=== PATIENT | female | born 1985 | race Caucasian/White ===

== ENCOUNTER 2016-10-16 10:37 | Inpatient (IN) | payer BC ==
[2016-10-16] MEDS ORDERED: Nalbuphine 20 MG/1 ML Amp IVPUSH PRN (11:33)
[2016-10-16] MEDS ORDERED: Sodium Chloride 0.9% 10 ML Syringe FLUSH PRN (11:33)
[2016-10-16] MEDS ORDERED: Oxytocin/Lactated Ringers 10 UNIT/1,000 ML BAG IV SCH (11:45)
[2016-10-16] MEDS: Misoprostol 25 MCG (1/4 of 100 MCG) Tab VAG SCH ×3 (12:29→19:24)
--- NOTE | 2016-10-16 14:16 | PCM.PREANE ---
Preanesthetic Assessment - Anesthesia/Transfusion/Family Hx Anesthesia History: No Prior Anesthesia Family History of Anesthesia Reaction: No Transfusion History: No Prior Transfusion(s) Intubation History: Unknown - Review of Systems General: No Symptoms Pulmonary: No Symptoms Cardiovascular: No Symptoms Gastrointestinal: Other (Gerd- on Zantac still with heartburn symptoms ) Neurological: Other (left leg numbness last few days most likely due to ) Other: Reports: None - Physical Assessment NPO Status Date: 10/16/16 NPO Status Time: 14:00 O2 Sat by Pulse Oximetry: 96 Respiratory Rate: 18 Vital Signs: Last Vital Signs Temp 36.7 C 10/16/16 12:00 Pulse 79 10/16/16 12:00 Resp 18 10/16/16 12:00 BP 129/78 10/16/16 12:00 Pulse Ox 96 10/16/16 12:00 Height: 1.68 m Weight: 108.21 kg ASA Class: 2 Mental Status: Alert & Oriented x3 Dentition: Reports: Normal Dentition Thyro-Mental Finger Breadths: 3 Mouth Opening Finger Breadths: 5 ROM/Head Extension: Full Lungs: Clear to auscultation, Normal respiratory effort Cardiovascular: Regular Rate, Regular Rhythm - Lab Values: Laboratory Last Values WBC 10.00 K/mm3 (3.98-10.04) 10/16/16 11:50 RBC 4.04 M/mm3 (3.98-5.22) 10/16/16 11:50 Hgb 12.9 gm/L (11.2-15.7) 10/16/16 11:50 Hct 37.7 % (34.1-44.9) 10/16/16 11:50 MCV 93.3 fl (79.4-94.8) 10/16/16 11:50 MCH 31.9 pg (25.6-32.2) 10/16/16 11:50 MCHC 34.2 g/dl (32.2-35.5) 10/16/16 11:50 RDW Std Deviation 44.6 fL (36.4-46.3) 10/16/16 11:50 Plt Count 209 K/mm3 (182-369) 10/16/16 11:50 MPV 11.2 fl (9.4-12.3) 10/16/16 11:50 Neut % (Auto) 70.0 % (34.0-71.1) 10/16/16 11:50 Lymph % (Auto) 18.9 % (19.3-51.7) L 10/16/16 11:50 [place] % (Auto) 9.1 % (4.7-12.5) 10/16/16 11:50 Eos % (Auto) 1.0 (0.7-5.8) 10/16/16 11:50 Baso % (Auto) 0.2 % (0.1-1.2) 10/16/16 11:50 Neut # (Auto) 7.00 K/mm3 (1.56-6.13) H 10/16/16 11:50 Lymph # (Auto) 1.89 K/mm3 (1.18-3.74) 10/16/16 11:50 [place] # (Auto) 0.91 K/mm3 (0.24-0.36) H 10/16/16 11:50 Eos # (Auto) 0.10 K/mm3 (0.04-0.36) 10/16/16 11:50 Baso # (Auto) 0.02 K/mm3 (0.01-0.08) 10/16/16 11:50 - Allergies Allergies/Adverse Reactions: Allergies Allergy/AdvReac Type Severity Reaction Status Date / Time No Known Allergies Allergy Verified 10/16/16 11:32 - Blood Blood Available: Yes Product(s) Available: PRBC - Anesthesia Plan Pre-Op Medication Ordered: None - Acknowledgements Anesthesia Type Planned: Epidural Pt an Appropriate Candidate for the Planned Anesthesia: Yes Alternatives and Risks of Anesthesia Discussed w Pt/Guardian: Yes Pt/Guardian Understands and Agrees with Anesthesia Plan: Yes PreAnesthesia Questionnaire HEENT History: Reports: None Cardiovascular History: Reports: None Respiratory History: Reports: None Gastrointestinal History: Reports: GERD Genitourinary History: Reports: None 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: : 2 (40 6/7 weeks) Para: 0 Musculoskeletal History: Reports: None Neurological History: Reports: None Psychiatric History: Reports: None Endocrine/Metabolic History: Reports: None Hematologic History: Reports: None Immunologic History: Reports: None Oncologic (Cancer) History: Reports: None Dermatologic History: Reports: None - Infectious Disease History Infectious Disease History: Reports: None - Past Surgical History Head Surgeries/Procedures: Reports: None - SUBSTANCE USE Smoking Status *Q: Never Smoker Second Hand Smoke Exposure: No Recreational Drug Use History: No - CURRENT (IN HOUSE) MEDS Current Meds: Current Medications Lactated Ringer's (Ringers, Lactated) 1,000 mls @ 100 mls/hr IV ASDIRECTED CHRISTINE Oxytocin/Lactated Ringer's (Pitocin In Lr 10 Units/1,000 Ml) 10 unit in 1,000 mls @ 12 mls/hr IV TITRATE CHRISTINE; 2 MUNITS/MIN PRN Reason: Protocol Misoprostol (Cytotec) 25 mcg VAG Q4HR CHRISTINE Stop: 10/16/16 17:01 Last Admin: 10/16/16 12:29 Dose: 25 mcg Nalbuphine HCl (Nubain) 10 mg IVPUSH Q2H PRN PRN Reason: Pain (moderate 4-6) Sodium Chloride (Saline Flush) 10 ml FLUSH ASDIRECTED PRN PRN Reason: Keep Vein Open
[2016-10-16] MEDS ORDERED: diphenhydrAMINE 50 MG/ML SDV IVPUSH PRN (14:36)
[2016-10-16] MEDS ORDERED: ePHEDrine 50 MG/ML SDV IVPUSH PRN (14:36)
[2016-10-16] MEDS ORDERED: fentaNYL 100 MCG/2 ML SDV EPIDUR PRN (14:36)
[2016-10-16] MEDS ORDERED: Bupivacaine/fentaNYL/NS 100 ML Bag EPIDUR SCH (14:45)
--- NOTE | 2016-10-16 17:02 | PCM.LDHP ---
L&D History of Present Illness - General Date of Service: 10/16/16 Admit Problem/Dx: Patient Status Order with Admit Dx/Problem 10/16/16 15:10 Patient Status [ADT] Routine Admission Diagnosis/Problem Admission Diagnosis/Problem Normal labor 10/16/16 16:50 40-6/7 week intrauterine , induction of labor Source of Information: Patient History Limitations: Reports: No limitations - History of Present Illness Introduction:: History of present illness: Amanda is a 31-year-old 2 para 0010 white female was admitted for elective induction of labor. She was due on 10/10/2016 placing her now at 40-6/7 weeks gestational age. She was seen in clinic today with some low back pain, generalized discomforts of and request for induction of labor. She is admitted to labor and delivery for Cytotec cervical ripening and Pitocin induction. She has had one dose of Cytotec already and is currently 1-2 cm dilated, 90% effaced 0 station, posterior position, soft. Baby is in a vertex presentation. She's having contractions approximately 3 minutes that are mild enough where she is not palpating them. heart tones reassuring. A biophysical profile this morning was 6/8 per ultrasound alone. She 's had a reactive nonstress test making it now 8/10. The procedure of induction of labor, its risks, benefits and alternatives are discussed in detail with the patient. She appears to understand and would like to proceed. 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 Her last menstrual period started 12/27/2015, was definite, had occurred on a monthly basis. She is not using any control 10 conception. Menarche age 9. Ultrasound was performed on 02/27/2016, 03/26/2016, 05/23/2016 and 06/26/2016 with all ultrasounds supportive of her last menstrual period dating which gave an JANELLE of 10/10/2016. Her course was positive for some anxiety. A cystic structure in the right ovary which was felt to be benign. Her [place] depression screen score on 05/14/2016 with 2 on a scale of 30. She is group B strep negative. She did have problems with hemorrhage x1 which resolved spontaneously. Her flu vaccine was administered on 03/26/2016. RhoGAM was given on 07/25/2016. She did have some nausea early in . First visit was on 03/26/2016 11-5/7 weeks gestational age. Patient seen on a regular basis. She made good fundal height growth. Her weight increased from a pre- weight of 2 weight 238 pounds for 36 pound weight gain. Her vital signs are stable throughout the course. laboratory testing is as follows: Blood is O- with a negative antibody screen. She received RhoGAM at the end of second trimester, specifically on 07/25/2016. Her initial platelet count was 267 and her initial hemoglobin was 13.4. Her rubella titer is immune. RPR is nonreactive. Hepatitis B surface antigen and HIV assays were both negative. Her gonorrhea and Chlamydia were both negative. TSH was normal at 0.898 milliunits per milliliter. Second trimester testing showed a hemoglobin of 12.7, platelet count 201,000. Her diabetic screening test was normal at 77. Antibody screen was negative prior to the RhoGAM. Her group B strep screen is negative. Allergies: Seasonal allergies only. No known drug allergies. Medications: 1. Hydrocortisone 2.56% rectal cream 3 times a day when necessary 2. Zantac 75 mg by mouth when necessary 3. Flintstones gum is omega and-3 DHA tissues 4 vitamin B12 choose Past medical history: 1. Spontaneous miscarriage x1. 2. Frequent urinary tract infections Past surgical history: Noncontributory Family history: Maternal third cousin with Down's syndrome. Mother and father are alive and in good health. No related problems noted. No bleeding, blood clotting anesthesia abnormalities reported. Social history: Patient is single. Patient works at [employer]. She denies any significant loss of alcohol, drugs or tobacco. He lives in [place]. Review of systems: Skin-negative Endocrine-negative Respiratory-negative Cardiovascular-negative Breasts-changes associated with GI-negative - changes Musculoskeletal-negative other than mild edema Neurologic-negative Physical exam: In general the patient is a well-developed, well-nourished, pleasant white female who was in moderate distress a.m. upon evaluation in clinic for care. She is having some back pain at that time. This has improved now that she's been admitted to labor and delivery. Skin is warm and dry without lesions. HEENT, neck and back within normal limits. Lungs are clear with good breath sounds in all mendiola. Cardiovascular exam shows regular rate and rhythm without murmurs. Breasts exam deferred having been done first visit-patient plans to pump and feet breasts normal Abdomen is protuberant with fundal height of approximately 38 cm. Baby in vertex presentation. Cervix is 1-2 cm/90%/0 station/soft/posterior Extremities show minimal edema. Neurological exam grossly within normal limits. - Related Data Allergies/Adverse Reactions: Allergies Allergy/AdvReac Type Severity Reaction Status Date / Time No Known Allergies Allergy Verified 10/16/16 11:32 Home Medications: Home Meds Pediatric Multivit Comb. 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: Musculoskeletal History: Reports: None Neurological History: Reports: None Psychiatric History: Reports: None Endocrine/Metabolic History: Reports: None Hematologic History: Reports: None Immunologic History: Reports: None Oncologic (Cancer) History: Reports: None Dermatologic History: Reports: None - Infectious Disease History Infectious Disease History: Reports: None - Past Surgical History Head Surgeries/Procedures: Reports: None Social & Family History - Family History Family Medical History: Noncontributory - Tobacco Use Smoking Status *Q: Never Smoker Second Hand Smoke Exposure: No - Recreational Drug Use Recreational Drug Use: No H&P Review of Systems - Review of Systems: Review Of Systems: See Below L&D Exam - Exam Exam: See Below - Vital Signs Vital Signs: Last Vital Signs Temp 36.7 C 10/16/16 12:00 Pulse 79 10/16/16 12:00 Resp 18 10/16/16 14:19 BP 129/78 10/16/16 12:00 Pulse Ox 96 10/16/16 14:19 Weight: 108.21 kg - Patient Data Lab Results last 24 hrs: Laboratory Results - last 24 hr 10/16/16 Range/Units 11:50 WBC 10.00 (3.98-10.04) K/mm3 RBC 4.04 (3.98-5.22) M/mm3 Hgb 12.9 (11.2-15.7) gm/L Hct 37.7 (34.1-44.9) % MCV 93.3 (79.4-94.8) fl MCH 31.9 (25.6-32.2) pg MCHC 34.2 (32.2-35.5) g/dl RDW Std Deviation 44.6 (36.4-46.3) fL Plt Count 209 (182-369) K/mm3 MPV 11.2 (9.4-12.3) fl Neut % (Auto) 70.0 (34.0-71.1) % Lymph % (Auto) 18.9 L (19.3-51.7) % [place] % (Auto) 9.1 (4.7-12.5) % Eos % (Auto) 1.0 (0.7-5.8) Baso % (Auto) 0.2 (0.1-1.2) % Neut # (Auto) 7.00 H (1.56-6.13) K/mm3 Lymph # (Auto) 1.89 (1.18-3.74) K/mm3 [place] # (Auto) 0.91 H (0.24-0.36) K/mm3 Eos # (Auto) 0.10 (0.04-0.36) K/mm3 Baso # (Auto) 0.02 (0.01-0.08) K/mm3 Result Diagrams: 10/16/16 11:50 Problem List Initiated/Reviewed/Updated: Yes Orders Last 24hrs: Active Orders 24 hr Category Date Time Status Patient Status [ADT] Routine ADT 10/16/16 15:10 Active Activity as Tolerated [RC] PFP Care 10/16/16 11:33 Active Communication Order [RC] ASDIRECTED Care 10/16/16 11:33 Active Communication Order [RC] ASDIRECTED Care 10/16/16 14:32 Active Heart Tones [RC] ASDIRECTED Care 10/16/16 11:34 Active Notify Provider [RC] ASDIRECTED Care 10/16/16 14:33 Active Notify Provider [RC] PFP Care 10/16/16 11:33 Active Notify Provider [RC] PRN Care 10/16/16 11:33 Active Peripheral IV Care [RC] . DIRECTED Care 10/16/16 11:34 Active Pulse Oximetry [RC] ASDIRECTED Care 10/16/16 14:31 Active Pump Management, Intrathecal [RC] ASDIRECTED Care 10/16/16 11:35 Active Urinary Catheter Assessment [RC] ASDIRECTED Care 10/16/16 11:33 Active Vital Signs [RC] PER UNIT ROUTINE Care 10/16/16 11:33 Active Bupivacaine/fentaNYL/NS [fentaNYL/Bupivacaine/NS 2 MCG- Med 10/16/16 14:45 Active 0.125% 100 ML] 100 ml EPIDUR ASDIRECTED Lactated Ringers [Ringers, Lactated] 1,000 ml Med 10/16/16 11:45 Active IV ASDIRECTED Misoprostol [Cytotec] Med 10/16/16 12:00 Active 25 mcg VAG Q4HR Nalbuphine [Nubain] Med 10/16/16 11:33 Active 10 mg IVPUSH Q2H PRN Oxytocin/Lactated Ringers [Pitocin in LR 10 Units/1,000 Med 10/16/16 11:45 Active ML] 10 unit in 1,000 ml IV TITRATE Sodium Chloride 0.9% [Saline Flush] Med 10/16/16 11:33 Active 10 ml FLUSH ASDIRECTED PRN diphenhydrAMINE [Benadryl] Med 10/16/16 14:36 Active 25 mg IVPUSH Q6H PRN ePHEDrine [ePHEDrine Sulfate] Med 10/16/16 14:36 Active 5 mg IVPUSH ASDIRECTED PRN fentaNYL [Sublimaze] Med 10/16/16 14:36 Active 100 mcg EPIDUR Q3H PRN Electronic Heart Tones Ext w TOCO [WOMSER] Oth 10/16/16 11:33 Ordered Routine Electronic Heart Tones Internal [WOMSER] Per Unit Oth 10/16/16 11:33 Ordered Routine Peripheral IV Insertion Adult [OM.PC] Routine Oth 10/16/16 11:33 Ordered Pulse Oximetry Continuous Monitoring [OM.PC] Routine Oth 10/16/16 14:33 Active Resuscitation Status Routine Resus Stat 10/16/16 11:33 Ordered Medication Orders Diphenhydramine HCl (Benadryl) 25 mg IVPUSH Q6H PRN PRN Reason: pruritis Ephedrine Sulfate (Ephedrine Sulfate) 5 mg IVPUSH ASDIRECTED PRN PRN Reason: Hypotension Fentanyl (Sublimaze) 100 mcg EPIDUR Q3H PRN PRN Reason: Pain Fentanyl/Bupivacaine HCl (Fentanyl/Bupivacaine/Ns 2 Mcg-0.125% 100 Ml) 100 ml EPIDUR ASDIRECTED CHRISTINE Lactated Ringer's (Ringers, Lactated) 1,000 mls @ 100 mls/hr IV ASDIRECTED CHRISTINE Oxytocin/Lactated Ringer's (Pitocin In Lr 10 Units/1,000 Ml) 10 unit in 1,000 mls @ 12 mls/hr IV TITRATE CHRISTIEN; 2 MUNITS/MIN PRN Reason: Protocol Misoprostol (Cytotec) 25 mcg VAG Q4HR CHRISTINE Stop: 10/16/16 17:01 Last Admin: 10/16/16 15:09 Dose: Not Given Admin: 10/16/16 12:29 Dose: 25 mcg Nalbuphine HCl (Nubain) 10 mg IVPUSH Q2H PRN PRN Reason: Pain (moderate 4-6) Sodium Chloride (Saline Flush) 10 ml FLUSH ASDIRECTED PRN PRN Reason: Keep Vein Open Assessment/Plan Comment:: Assessment: 1. 40-6/7 week intrauterine , admitted for induction of labor 2. Group B strep status negative. 3. Patient is desiring epidural in labor and delivery 4. Patient plans to breast-feed/polyp and the breast milk 5. Low back pain today suspect possibility of early labor. Plan: 1. Patient's undergone one dose of Cytotec with good results. Anticipate normal spontaneous vaginal delivery. 2. Pitocin induction to be started at this time 3. Intermittent electronic monitoring per protocol 4. Epidural when necessary per patient desire 5. Encouraged breast-feeding behavior.
[2016-10-16] MEDS: Lactated Ringers 1,000 ML IV SCH ×5 (18:15→23:11)
--- NOTE | 2016-10-17 00:44 | PCM.SN ---
- Free Text/Narrative Note: Amanda is now a 31-year-old 2 para 1011 white female who is admitted for elective induction of labor mid-day on 10/16/2016. She is given one dose of Cytotec 25 mcg vaginally with which she changed her cervix to 1-2 cm, 90% effaced, 0 station, soft, anterior. Pitocin was started and with the Pitocin patient progressed rapidly to complete cervical dilation. She is spontaneous rupture membranes with resultant clear amniotic fluid. She became complete at approximately 2350 hours on 10/16/2016. She pushed approximately 3 contractions and delivered a viable, aburto, 3230 g (7 pound 1.9 ounces), 20 inch long female in a left occiput anterior position. scores were 9 and 9. The umbilical cord was noted to be loosely around the neck x1 was reduced over the babies head. Delivery of the baby was at 0019 hours on 10/17/2016. There were no significant lacerations, only superficial abrasions and no stitches were placed. Epidural was used for analgesia. Cord blood was obtained . The placenta delivered quickly after that in a ARZATE fashion. The umbilical cord had 3 blood vessels present. The placenta appeared intact and complete. Reevaluation for lacerations again showed no significant tears. No stitches needed. Pitocin was administered after delivery of the baby. Estimated blood loss was 100 cc. Patient plans to bottlefeed with pump breast milk. Condition good.
[2016-10-17] MEDS ORDERED: Witch Hazel Medicated Pads 100/Jar TOP PRN (00:46)
[2016-10-17] MEDS ORDERED: Lanolin 100% Cream 7 GM Tube TOP PRN (00:46)
[2016-10-17] MEDS ORDERED: Acetaminophen 325 MG Tab PO PRN (00:46)
[2016-10-17] MEDS ORDERED: Benzocaine/Menthol 20%-0.5% Spray 56 GM Canister TOP PRN (00:46)
[2016-10-17] MEDS ORDERED: Ondansetron 4 MG Tab.DIS PO PRN (00:51)
[2016-10-17] MEDS ORDERED: diphenhydrAMINE 50 MG/ML SDV IVPUSH ONE (02:03)
[2016-10-17] MEDS: Ibuprofen 600 MG Tab PO PRN ×2 (02:06→18:28)
[2016-10-17] MEDS: Prenatal Multivitamin with Calcium/Folic Acid/Iron Tab PO SCH (14:51)
[2016-10-17] MEDS ORDERED: Bupivacaine 0.25% 10 ML SDV ONE (22:22)
[2016-10-17] MEDS ORDERED: ePHEDrine 50 MG/ML SDV ONE (22:22)
[2016-10-18] MEDS: Ibuprofen 600 MG Tab PO PRN ×2 (05:14→16:56)
[2016-10-18] MEDS: Docusate Sodium 100 MG Cap PO PRN ×2 (06:47→16:58)
--- NOTE | 2016-10-18 07:29 | PCM.DCSUM1 ---
Discharge Summary - Hospital Course Free Text/Narrative:: Amanda is now a 31-year-old 2 para 1011 white female who is admitted for elective induction of labor mid-day on 10/16/2016. She is given one dose of Cytotec 25 mcg vaginally with which she changed her cervix to 1-2 cm, 90% effaced, 0 station, soft, anterior. Pitocin was started and with the Pitocin patient progressed rapidly to complete cervical dilation. She is spontaneous rupture membranes with resultant clear amniotic fluid. She became complete at approximately 2350 hours on 10/16/2016. She pushed approximately 3 contractions and delivered a viable, aburto, 3230 g (7 pound 1.9 ounces), 20 inch long female in a left occiput anterior position. scores were 9 and 9. The umbilical cord was noted to be loosely around the neck x1 was reduced over the babies head. Delivery of the baby was at 0019 hours on 10/17/2016. There were no significant lacerations, only superficial abrasions and no stitches were placed. Epidural was used for analgesia. Cord blood was obtained . The placenta delivered quickly after that in a ARZATE fashion. The umbilical cord had 3 blood vessels present. The placenta appeared intact and complete. Reevaluation for lacerations again showed no significant tears. No stitches needed. Pitocin was administered after delivery of the baby. Estimated blood loss was 100 cc. Patient plans to bottlefeed with pump breast milk. patient has done very well, the baby has had some temperature and respiratory instability and is on IV antibiotics. Mother however is recovering fine and has minimal lochia. She is pumping with good results. She is ambulating well, voiding and has no other concerns. No signs of infection. She is desiring discharge. Followup CBC is within normal limits . The - Discharge Data Discharge Date: 10/18/16 Discharge Disposition: Home, Self-Care 01 Condition: Good - Patient Instructions Diet: Regular Diet as Tolerated (Regular, high-fiber, nursing diet was increased calcium and calories is recommended.) Activity: As Tolerated Driving: May Drive Today Showering/Bathing: May Shower (May take a bath) Notify Provider of: Fever, Increased Pain, Swelling and Redness, Nausea and/or Vomiting - Discharge Plan Home Medications: Home Meds Pediatric Multivit Comb. No.49 [Flintstones Gummies] 2 tab DAILY 10/16/16 [ History] Ranitidine [Zantac] 1 tab PO DAILY 10/16/16 [History] Ibuprofen [IJD: Ibuprofen] 600 mg PO Q4H PRN #0 tablet 10/18/16 [Rx] Referrals: Howie Nicole MD [Family Provider] - ([facility] - Discharge Summary/Plan Comment DC Time >30 min.: No Discharge Summary/Plan Comment: Discharge instructions: 1. Discharge home 2. Regular, high-fiber, nursing diet with increase calories and calcium. 3. Precautions given concern increased pain, bleeding, temperature elevation, signs/symptoms of DVT/PE. 4. Medications per home medication was printed, discussed with him given to the patient 5. Return to clinic-Dr. Nicole-6 weeks [facility] this [facility]. Diagnosis: term -delivered Condition: Good - Patient Data Vitals - Most Recent: Last Vital Signs Temp 36.5 C 10/17/16 20:27 Pulse 81 10/17/16 20:27 Resp 16 10/17/16 20:27 BP 123/87 10/17/16 20:27 Pulse Ox 100 10/17/16 20:27 Weight - Most Recent: 108.21 kg Lab Results - Last 24 hrs: Laboratory Results - last 24 hr 10/17/16 10/18/16 Range/Units 08:45 05:49 WBC 9.90 (3.98-10.04) K/mm3 RBC 3.70 L (3.98-5.22) M/mm3 Hgb 11.9 (11.2-15.7) gm/L Hct 35.7 (34.1-44.9) % MCV 96.5 H (79.4-94.8) fl MCH 32.2 (25.6-32.2) pg MCHC 33.3 (32.2-35.5) g/dl RDW Std Deviation 46.0 (36.4-46.3) fL Plt Count 176 L (182-369) K/mm3 MPV 11.2 (9.4-12.3) fl Blood Type O NEGATIVE Gel Antibody Screen Negative Screen 1 ros/5 flds - neg RhIG Candidate? Yes Rhogam Indicated Yes, baby rh unknown H Med Orders - Current: Current Medications Acetaminophen (Tylenol) 650 mg PO Q4H PRN PRN Reason: mild pain or fever Benzocaine/Menthol (Dermoplast Pain Relief [place]) 0 gm TOP ASDIRECTED PRN PRN Reason: Perineal Comfort Measure Last Admin: 10/17/16 02:06 Dose: 1 canister Docusate Sodium (Colace) 100 mg PO BID PRN PRN Reason: Constipation Last Admin: 10/18/16 06:47 Dose: 100 mg Emollient Ointment (Lansinoh Hpa) 0 gm TOP ASDIRECTED PRN PRN Reason: Sore Nipples Ibuprofen (Motrin) 600 mg PO Q4H PRN PRN Reason: Mild pain or fever Last Admin: 10/18/16 05:14 Dose: 600 mg Ondansetron HCl (Zofran Odt) 4 mg PO Q6H PRN PRN Reason: Nausea/Vomiting Last Admin: 10/17/16 01:55 Dose: 4 mg Prenat Multivit/Life Skills Coordinator/Iron/Folic Ac ( Plus Iron) 1 each PO DAILY CHRISTINE Last Admin: 10/17/16 14:51 Dose: Not Given Witch Debbie (Tucks) 1 pad TOP ASDIRECTED PRN PRN Reason: Hemorrhoid pain Discontinued Medications Bupivacaine HCl (Sensorcaine-Mpf 0.25%) 10 ml .ROUTE .STK-MED ONE Stop: 10/17/16 22:23 Diphenhydramine HCl (Benadryl) 25 mg IVPUSH Q6H PRN PRN Reason: pruritis Diphenhydramine HCl (Benadryl) 25 mg IVPUSH ONETIME ONE Stop: 10/17/16 02:04 Last Admin: 10/17/16 05:09 Dose: Not Given Ephedrine Sulfate (Ephedrine Sulfate) 5 mg IVPUSH ASDIRECTED PRN PRN Reason: Hypotension Ephedrine Sulfate (Ephedrine Sulfate) 50 mg .ROUTE .STK-MED ONE Stop: 10/17/16 22:23 Fentanyl (Sublimaze) 100 mcg EPIDUR Q3H PRN PRN Reason: Pain Last Admin: 10/16/16 19:45 Dose: 100 mcg Fentanyl/Bupivacaine HCl (Fentanyl/Bupivacaine/Ns 2 Mcg-0.125% 100 Ml) 100 ml EPIDUR ASDIRECTED CHRISTINE Last Admin: 10/16/16 19:45 Dose: 100 ml Lactated Ringer's (Ringers, Lactated) 1,000 mls @ 100 mls/hr IV ASDIRECTED CHRISTINE Last Admin: 10/16/16 23:11 Dose: 999 mls/hr Oxytocin/Lactated Ringer's (Pitocin In Lr 10 Units/1,000 Ml) 10 unit in 1,000 mls @ 12 mls/hr IV TITRATE CHRISTINE; 2 MUNITS/MIN PRN Reason: Protocol Last Titration: 10/17/16 01:25 Dose: Infused Misoprostol (Cytotec) 25 mcg VAG Q4HR CHRISTINE Stop: 10/16/16 17:01 Last Admin: 10/16/16 19:24 Dose: Not Given Nalbuphine HCl (Nubain) 10 mg IVPUSH Q2H PRN PRN Reason: Pain (moderate 4-6) Last Admin: 10/16/16 18:43 Dose: 10 mg Sodium Chloride (Saline Flush) 10 ml FLUSH ASDIRECTED PRN PRN Reason: Keep Vein Open *Q Meaningful Use (DIS) - VTE *Q VTE Criteria *Q: - Stroke *Q Stroke Criteria *Q: - AMI *Q AMI Criteria *Q:
[2016-10-18] MEDS: Prenatal Multivitamin with Calcium/Folic Acid/Iron Tab PO SCH (16:59)
[2016-10-19] MEDS: Docusate Sodium 100 MG Cap PO PRN (06:49)
[2016-10-19] MEDS: Ibuprofen 600 MG Tab PO PRN (06:49)
--- NOTE | 2016-10-19 07:02 | PCM.SN ---
- Free Text/Narrative Note: Had planned for discharge yesterday. Stayed additional day. See discharge note from yesterday for details. No changes to exam.
[2016-10-19] MEDS ORDERED: Magnesium Hydroxide 400 MG/5 ML Susp 30 ML Cup PO PRN (09:04)
[2016-10-19] MEDS: Prenatal Multivitamin with Calcium/Folic Acid/Iron Tab PO SCH (09:22)
[2016-10-19 16:59] VITALS: BP 136/82
== END 2016-10-19 16:00 | disposition home or self-care (01) | DRG 560 ==
LOC: JD.OB 10:37 → JD.MS 10-17 00:19 → OBSVTOIN 10-17 00:19 → JD.OB 10-17 10:33
PROVIDERS: ADMIT Obstetrics & Gynecology; ATTEND Obstetrics & Gynecology
PROC: 10E0XZZ Delivery of Products of Conception, External Approach (ICD-10-PCS; principal; 2016-10-17)
PROC: 3E0P7GC Introduction of Other Therapeutic Substance into Female Reproductive, Via Natural or Artificial Opening (ICD-10-PCS; 2016-10-17)
PROC: 10907ZC Drainage of Amniotic Fluid, Therapeutic from Products of Conception, Via Natural or Artificial Opening (ICD-10-PCS; 2016-10-17)
PROC: 00HU33Z Insertion of Infusion Device into Spinal Canal, Percutaneous Approach (ICD-10-PCS; 2016-10-17)
PROC: 3E0R3CZ (ICD-10-PCS; 2016-10-17)
DX: O69.81X0 Labor and delivery complicated by cord around neck, without compression, not applicable or unspecified (principal); Z3A.41 41 weeks gestation of pregnancy; Z37.0 Single live birth
CPT/HCPCS: 01967; 36415; 85025; 85027; 85461; 86850; 86900; 86901; 93005; A9270-GY; J2300; J2590; J2790; J3010; J7120

== ENCOUNTER → 2017-05-13 | Day surgery (SDC) | payer BC ==
[~2017-05-13] MED LIST: Bupivacaine 0.5% 30 ML SDV ONE; HYDROmorphone 1 MG/ML Syringe ONE; Ketorolac 30 MG/ML SDV IVPUSH PRN; Lactated Ringers 1,000 ML IV SCH; Lactated Ringers 1,000 ML ONE; Lidocaine 1% 4 ML ONE; Metoclopramide 10 MG/2 ML SDV IVPUSH PRN; Midazolam 1 MG/ML 2 ML SDV ONE; Neostigmine Methylsulfate 10 MG/10 ML MDV ONE; Ondansetron 4 MG/2 ML SDV IVPUSH PRN; Ondansetron 4 MG/2 ML SDV ONE; Propofol 200 MG/20 ML SDV ONE; Rocuronium 50 MG/5 ML Vial ONE; cefOXitin 2 GM in Premix Bag 1 BAG IV ONE; fentaNYL 100 MCG/2 ML SDV ONE; fentaNYL 250 MCG/5 ML SDV IVPUSH PRN; fentaNYL 250 MCG/5 ML SDV ONE; metroNIDAZOLE/Normal Saline 500 MG in Premix Bag 1 BAG IV ONE
--- NOTE | 2017-05-13 18:54 | PCM.OPNOTE ---
- General Post-Op/Procedure Note Date of Surgery/Procedure: 05/13/17 Operative Procedure(s): lap appy Pre Op Diagnosis: acute appendicitis Post-Op Diagnosis: Same Anesthesia Technique: General ET Tube, MAC Primary Surgeon: Jeremy Fish EBL in mLs: 10 Complications: None Condition: Good
--- NOTE | 2017-05-13 19:10 | PCM.PREANE ---
Preanesthetic Assessment - Anesthesia/Transfusion/Family Hx Anesthesia History: Prior Anesthesia Without Reaction Family History of Anesthesia Reaction: No Transfusion History: No Prior Transfusion(s) Intubation History: Unknown - Review of Systems General: Fatigue, Malaise, Appetite Pulmonary: No Symptoms Cardiovascular: No Symptoms Gastrointestinal: Abdominal Pain Neurological: No Symptoms Other: Reports: None - Physical Assessment NPO Status Date: 05/13/17 NPO Status Time: 14:00 Pulse: 82 O2 Sat by Pulse Oximetry: 100 Respiratory Rate: 14 Blood Pressure: 138/88 Temperature: 36.7 C Vital Signs: Last Vital Signs Temp 36.7 C 05/13/17 18:59 Pulse 89 05/13/17 16:51 Resp 14 05/13/17 18:59 BP 129/83 05/13/17 18:59 Pulse Ox 100 05/13/17 18:59 Height: 1.68 m Weight: 100.698 kg ASA Class: 2E Mental Status: Alert & Oriented x3 Airway Class: Mallampati = 1 Dentition: Reports: Normal Dentition Thyro-Mental Finger Breadths: 3 Mouth Opening Finger Breadths: 3 ROM/Head Extension: Full Lungs: Clear to Auscultation, Normal Respiratory Effort Cardiovascular: Regular Rate, Regular Rhythm - Allergies Allergies/Adverse Reactions: Allergies Allergy/AdvReac Type Severity Reaction Status Date / Time No Known Allergies Allergy Verified 05/13/17 16:53 - Blood Blood Available: No Product(s) Available: None - Anesthesia Plan Pre-Op Medication Ordered: None - Acknowledgements Anesthesia Type Planned: General Anesthesia Pt an Appropriate Candidate for the Planned Anesthesia: Yes Alternatives and Risks of Anesthesia Discussed w Pt/Guardian: Yes Pt/Guardian Understands and Agrees with Anesthesia Plan: Yes PreAnesthesia Questionnaire - Past Health History Medical/Surgical History: Denies Medical/Surgical History HEENT History: Reports: None Cardiovascular History: Reports: None Respiratory History: Reports: None Gastrointestinal History: Reports: GERD Genitourinary History: Reports: None [employer]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: Musculoskeletal History: Reports: None Neurological History: Reports: None Psychiatric History: Reports: None Endocrine/Metabolic History: Reports: None Hematologic History: Reports: None Immunologic History: Reports: None Oncologic (Cancer) History: Reports: None Dermatologic History: Reports: None - Infectious Disease History Infectious Disease History: Reports: None - Past Surgical History Head Surgeries/Procedures: Reports: None - SUBSTANCE USE Smoking Status *Q: Never Smoker Second Hand Smoke Exposure: No Recreational Drug Use History: No - HOME MEDS Home Medications: Home Meds Azithromycin [Zithromax] 250 mg PO ONETIME 05/13/17 [History] - CURRENT (IN HOUSE) MEDS Current Meds: Current Medications Discontinued Medications Bupivacaine HCl (Marcaine 0.5%) Confirm Administered Dose 30 ml .ROUTE .STK-MED ONE Stop: 05/13/17 17:34 Fentanyl (Sublimaze) Confirm Administered Dose 250 mcg .ROUTE .STK-MED ONE Stop: 05/13/17 18:06 Fentanyl (Sublimaze) Confirm Administered Dose 100 mcg .ROUTE .STK-MED ONE Stop: 05/13/17 18:55 Glycopyrrolate () Confirm Administered Dose 1 mg .ROUTE .STK-MED ONE Stop: 05/13/17 19:06 Hydromorphone HCl (Dilaudid) Confirm Administered Dose 1 mg .ROUTE .STK-MED ONE Stop: 05/13/17 18:54 Cefoxitin Sodium 2 gm/ Premix 50 mls @ 100 mls/hr IV ONETIME ONE Stop: 05/13/17 18:04 Last Admin: 05/13/17 17:57 Dose: 100 mls/hr Metronidazole 500 mg/ Premix 100 mls @ 100 mls/hr IV ONETIME ONE Stop: 05/13/17 18:34 Last Admin: 05/13/17 17:57 Dose: 100 mls/hr Lidocaine HCl (Xylocaine-Mpf 1%) Confirm Administered Dose 4 mls @ as directed .ROUTE .STK-MED ONE Stop: 05/13/17 18:06 Lactated Ringer's (Ringers, Lactated) Confirm Administered Dose 1,000 mls @ as directed .ROUTE .STK-MED ONE Stop: 05/13/17 18:59 Midazolam HCl (Versed 1 Mg/Ml) Confirm Administered Dose 2 mg .ROUTE .STK-MED ONE Stop: 05/13/17 18:06 Neostigmine Methylsulfate (Neostigmine Methylsulfate) Confirm Administered Dose 10 mg .ROUTE .STK-MED ONE Stop: 05/13/17 19:06 Ondansetron HCl (Zofran) Confirm Administered Dose 4 mg .ROUTE .STK-MED ONE Stop: 05/13/17 18:06 Propofol (Diprivan 20 Ml) Confirm Administered Dose 200 mg .ROUTE .STK-MED ONE Stop: 05/13/17 18:06 Rocuronium Douglas (Zemuron) Confirm Administered Dose 50 mg .ROUTE .STK-MED ONE Stop: 05/13/17 18:06
--- NOTE | 2017-05-13 19:11 | PCM.POSTAN ---
POST ANESTHESIA ASSESSMENT - MENTAL STATUS Mental Status: Alert, Oriented - VITAL SIGNS Pulse Rate: 95 SaO2: 100 Resp Rate: 14 Blood Pressure: 129/83 Temperature: 36.7 C - RESPIRATORY Respiratory Status: Respiratory Rate WNL, Airway Patent, O2 Saturation Stable, Supplemental Oxygen - CARDIOVASCULAR CV Status: Pulse Rate WNL, Blood Pressure Stable - GASTROINTESTINAL GI Status: No Symptoms - PAIN Pain Score: 3 - POST OP HYDRATION Hydration Status: Adequate & Stable - OBSERVATIONS Free Text/Narrative:: no anesthesia complications noted
[2017-05-13] MEDS: HYDROmorphone 0.5 MG/0.5 ML Syringe IVPUSH PRN ×2 (19:19→20:14)
[2017-05-13] MEDS: Acetaminophen/HYDROcodone 325-5 MG Tab PO PRN (21:08)
[2017-05-14] MEDS: Acetaminophen/HYDROcodone 325-5 MG Tab PO PRN ×2 (02:36→09:24)
--- NOTE | 2017-05-14 07:30 | HP ---
DATE OF ADMISSION: 05/13/2017 HISTORY OF PRESENT ILLNESS: This is a 31-year-old female who developed pain this morning in the right lower quadrant which persisted and grew in intensity associated with dyspepsia. She came in and saw, nurse practitioner did a CT scan showing acute appendicitis. The patient was sent here for treatment. PAST MEDICAL HISTORY: Good health. CURRENT MEDICATIONS: None. SOCIAL HISTORY: No smoking. No drinking. She is 6 months and is . REVIEW OF SYSTEMS: No chest pain, shortness of breath, cough, hoarseness, wheezing, fainting, weakness, numbness, convulsions. LABORATORY DATA: Shows a white count off 12,000 and urinalysis is negative. FAMILY HISTORY: Negative. SOCIAL HISTORY: No smoking. No drinking. No use of street drugs. PHYSICAL EXAMINATION: GENERAL: Reveals alert, cooperative female. VITAL SIGNS: Shows a temperature of 98.6, heart rate is 89, blood pressure is 117/62. EYES: Sclerae white. Extraocular muscle motion normal. Oral cavity healthy mucous membrane with mouth and tongue. NECK: Supple. No nodes. No thyromegaly. Trachea midline. LUNGS: Clear. No rales, rhonchi, fremitus, or dullness. HEART: Heart tones regular rate. No S3, S4, jugular venous distention. ABDOMEN: Soft, except with tenderness and guarding in McBurney's point. EXTREMITIES: Upper and lower extremities no angulation deformities. NEUROLOGIC: No sensorineural deficit. Cranial nerves III through XII intact. PSYCHIATRIC: Normal. ASSESSMENT: Acute appendicitis based on the CT scan. Recommendation is to proceed with laparoscopic appendectomy. Discussed the procedure, the risks, and complications. The patient understands and consents. MMODAL /[id number]
--- NOTE | 2017-05-14 07:34 | OR ---
DATE OF OPERATION: 05/13/2017 SURGEON: Jeremy Fish MD PREOPERATIVE DIAGNOSIS: Acute appendicitis. POSTOPERATIVE DIAGNOSIS: Acute appendicitis. OPERATION PERFORMED: Laparoscopic appendectomy done under general anesthetic. ESTIMATED BLOOD LOSS: 10 mL. FINDINGS: Acute appendicitis with only reaction around the appendicular tip. DESCRIPTION OF PROCEDURE: The patient was taken to the operating room, placed in a supine position, connected to monitoring equipment, given a general anesthetic and intubated. Antibiotics were given, SCDs were placed, and the abdomen was prepped with DuraPrep, draped off in a sterile fashion. Incision was made just below the umbilicus, carried down by sharp dissection to the fascia, which was incised. A Mitali trocar was placed and secured with stay sutures. Pneumoperitoneum was then established and a 5 mm 30-degree camera was then inserted. The patient was placed in steep Trendelenburg leftward tilt and demonstrating an acutely inflamed appendix. A 5-mm trocar was placed in the right upper quadrant and 1 in the right lower quadrant and the mesoappendix was mobilized and a window was placed in the mesoappendix at the base of the cecum. The Ethicon Endo-ligator was then inserted through this window and fired the appendix from its attachments to the cecum. Another firing of the Endo-ligator the mesoappendix from the appendix. The appendix was placed in the bag and removed. The camera was reinserted. The area was irrigated. Excellent hemostasis identified and the appendicular stump was secured. This completed the intraabdominal portion of the procedure. Pneumoperitoneum was removed, and the fascia of the subumbilical port was closed with a running 0 Vicryl suture. The skin of each port closed with subdermal 4-0 Dexon suture and a Steri-Strips sterile dressing placed and each port was anesthetized with 0.5% Marcaine. Sterile dressing was placed. The patient tolerated the procedure and sent to recovery room in a stable condition. ANESTHESIA: MMODAL /[id number]
[2017-05-14 10:05] VITALS: BP 127/72
== END | disposition home or self-care (01) ==
LOC: JD.ED 16:40 → JD.SDS 17:07
PROVIDERS: ATTEND Surgery
DX: K35.80 Unspecified acute appendicitis (principal); K21.9 Gastro-esophageal reflux disease without esophagitis; Z79.2 Long term (current) use of antibiotics; R10.31 Right lower quadrant pain
CPT/HCPCS: 36415; 44970; 74177; 80053; 81001; 81025; 85025; 86140; 96374; 96375; 99285; A9270; J0694; J1170; J1885; J2250; J2405; J2710; J3010; J7050; J7120; Q9963; Q9967; 00840; J2704

== ENCOUNTER 2018-11-21 00:54 | Emergency (ER) | payer BC ==
[2018-11-21] MEDS ORDERED: Ondansetron 4 MG/2 ML SDV IVPUSH ONE (01:31)
--- NOTE | 2018-11-21 01:36 | EDM.PDOCBH ---
ED HPI GENERAL MEDICAL PROBLEM - General Chief Complaint: Drug or Alcohol Abuse Stated Complaint: [facility] Time Seen by Provider: 11/21/18 01:23 Source of Information: Reports: RN Notes Reviewed History Limitations: Reports: Intoxication - History of Present Illness INITIAL COMMENTS - FREE TEXT/NARRATIVE: The history is somewhat limited, as the patient appears to be intoxicated and is unable to answer any questions. We are told that EMS was called after the patient passed out and vomited at a local bar. She was dry heaving in the ED. Review of prior medical records finds a preoperative history and physical performed on 05/13/2017, which indicated no medical, surgical, or social history. It is unknown if the patient has a PCP. - Related Data Allergies Allergy/AdvReac Type Severity Reaction Status Date / Time No Known Allergies Allergy Unverified 11/21/18 01:04 Home Meds: Home Meds . [Unable to Verify Home Med List] 11/21/18 [History] Past Medical History [employer] History: Reports: Endocrine/Metabolic History: Reports: Obesity/BMI 30+ - Past Surgical History GI Surgical History: Reports: Appendectomy Social & Family History - Family History Family Medical History: Noncontributory - Tobacco Use Smoking Status *Q: Never Smoker - Caffeine Use Caffeine Use: Reports: Coffee - Alcohol Use Alcohol Use History: Yes Alcohol Use Frequency: Rarely - Recreational Drug Use Recreational Drug Use: No - Living Situation & Occupation Living situation: Reports: Single, Alone Occupation: Employed ([employer]) ED ROS GENERAL - Review of Systems Review Of Systems: Unable To Obtain ED EXAM, BEHAVIORAL HEALTH - Physical Exam Exam: See Below Exam Limited By: Intoxication General Appearance: WD/WN, No Apparent Distress, Lethargic (Opens eyes when her name is called) Eye Exam: Bilateral Eye: EOMI, Normal Inspection Ears: Normal External Exam, Hearing Grossly Normal Nose: Normal Inspection Throat/Mouth: Normal Inspection, Normal Lips, Normal Voice, No Airway Compromise Head: Atraumatic, Normocephalic Neck: Normal Inspection, Full Range of Motion Respiratory/Chest: No Respiratory Distress, Lungs Clear, Normal Breath Sounds, No Accessory Muscle Use Cardiovascular: Normal Peripheral Pulses, Regular Rate, Rhythm, No Gallop, No JVD, No Murmur, No Rub GI/Abdominal: Normal Bowel Sounds, Soft, No Organomegaly, No Distention, No Abnormal Bruit, No Mass, Other (Obese) (Female) Exam: Deferred Rectal (Female) Exam: Deferred Extremities: Normal Inspection, Normal Capillary Refill Neurological: Other (Lethargic, but opens eyes to her name being called. Did not follow any commands for physical exam.) Skin Exam: Warm, Dry, Intact, Normal color, No rash EKG INTERPRETATION EKG Date: 11/21/18 Time: 01:37 Rhythm: Other (Sinus tachycardia) Rate (Beats/Min): 103 [place]: Normal P-Wave: Present QRS: Normal ST-T: Normal QT: Normal Comparison: No Change (10/17/2016) COURSE, BEHAVIORAL HEALTH COMP - Course Vital Signs: Last Vital Signs Temp 36.2 C 11/21/18 01:05 Pulse 96 11/21/18 01:05 Resp 18 11/21/18 01:05 BP 133/91 H 11/21/18 01:05 Pulse Ox 92 L 11/21/18 01:05 Orders, Labs, Meds: Active Orders 24 hr Category Date Time Status EKG Documentation Completion [RC] STAT Care 11/21/18 01:30 Active Lactated Ringers [Ringers, Lactated] 1,000 ml Med 11/21/18 02:15 Active IV ASDIRECTED Medication Orders Lactated Ringer's (Ringers, Lactated) 1,000 mls @ 150 mls/hr IV ASDIRECTED CHRISTINE Laboratory Tests 11/21/18 11/21/18 11/21/18 Range/Units 01:10 01:10 01:10 WBC 8.29 (3.98-10.04) K/mm3 RBC 4.13 (3.98-5.22) M/mm3 Hgb 12.7 (11.2-15.7) gm/L Hct 37.2 (34.1-44.9) % MCV 90.1 (79.4-94.8) fl MCH 30.8 (25.6-32.2) pg MCHC 34.1 (32.2-35.5) g/dl RDW Std Deviation 38.7 (36.4-46.3) fL Plt Count 274 (182-369) K/mm3 MPV 10.3 (9.4-12.3) fl Neutrophils % (Manual) 61 H (40-60) % Band Neutrophils % 0 (0-10) % Lymphocytes % (Manual) 33 (20-40) % Atypical Lymphs % 0 % Monocytes % (Manual) 5 (2-10) % Eosinophils % (Manual) 0 L (0.7-5.8) % Basophils % (Manual) 1 (0.1-1.2) Platelet Estimate Adequate RBC Morph Comment Normal Sodium 138 (136-145) mEq/L Potassium 3.0 L (3.5-5.1) mEq/L Chloride 106 (98-107) mEq/L Carbon Dioxide 18 L (21-32) mEq/L Anion Gap 17.0 H (5-15) BUN 12 (7-18) mg/dL Creatinine 0.7 (0.55-1.02) mg/dL Est Cr Clr Drug Dosing TNP Estimated GFR (MDRD) > 60 (>60) mL/min BUN/Creatinine Ratio 17.1 (14-18) Glucose 110 H (74-106) mg/dL Calcium 8.1 L (8.5-10.1) mg/dL Magnesium 1.8 (1.8-2.4) mg/dl Total Bilirubin 0.2 (0.2-1.0) mg/dL AST 12 L (15-37) U/L ALT 18 (14-59) U/L Alkaline Phosphatase 53 (46-116) U/L Total Protein 6.6 (6.4-8.2) g/dl Albumin 3.6 (3.4-5.0) g/dl Globulin 3.0 gm/dL Albumin/Globulin Ratio 1.2 (1-2) Urine HCG, Qual (NEGATIVE) Salicylates 0.6 L (2.8-20) mg/dL Urine Opiates Screen (HFNMTV=482) Ur Buprenorphine Scrn (CUTOFF=10) Ur Oxycodone Screen (JYO9TB=028) Urine Methadone Screen (GRYVFJ=326) Ur Propoxyphene Screen (BKRCEW=245) Acetaminophen 0 L (10-30) ug/mL Ur Barbiturates Screen (REYXGH=311) Ur Tricyclics Screen (YWXIUZ=044) Ur Phencyclidine Scrn (CUTOFF=25) Ur Amphetamine Screen (WVGXRX=794) U Methamphetamines Scrn (LVTSLQ=227) U Benzodiazepines Scrn (MTSCZI=345) U Cocaine Metab Screen (TQILHZ=865) U Marijuana (THC) Screen (CUTOFF=50) Ethyl Alcohol 0.31 (0.00) gm% 11/21/18 11/21/18 Range/Units 01:45 01:45 WBC (3.98-10.04) K/mm3 RBC (3.98-5.22) M/mm3 Hgb (11.2-15.7) gm/L Hct (34.1-44.9) % MCV (79.4-94.8) fl MCH (25.6-32.2) pg MCHC (32.2-35.5) g/dl RDW Std Deviation (36.4-46.3) fL Plt Count (182-369) K/mm3 MPV (9.4-12.3) fl Neutrophils % (Manual) (40-60) % Band Neutrophils % (0-10) % Lymphocytes % (Manual) (20-40) % Atypical Lymphs % % Monocytes % (Manual) (2-10) % Eosinophils % (Manual) (0.7-5.8) % Basophils % (Manual) (0.1-1.2) Platelet Estimate RBC Morph Comment Sodium (136-145) mEq/L Potassium (3.5-5.1) mEq/L Chloride (98-107) mEq/L Carbon Dioxide (21-32) mEq/L Anion Gap (5-15) BUN (7-18) mg/dL Creatinine (0.55-1.02) mg/dL Est Cr Clr Drug Dosing Estimated GFR (MDRD) (>60) mL/min BUN/Creatinine Ratio (14-18) Glucose (74-106) mg/dL Calcium (8.5-10.1) mg/dL Magnesium (1.8-2.4) mg/dl Total Bilirubin (0.2-1.0) mg/dL AST (15-37) U/L ALT (14-59) U/L Alkaline Phosphatase (46-116) U/L Total Protein (6.4-8.2) g/dl Albumin (3.4-5.0) g/dl Globulin gm/dL Albumin/Globulin Ratio (1-2) Urine HCG, Qual Negative (NEGATIVE) Salicylates (2.8-20) mg/dL Urine Opiates Screen Negative (LFQUFC=266) Ur Buprenorphine Scrn Negative (CUTOFF=10) Ur Oxycodone Screen Negative (IWB6JO=100) Urine Methadone Screen Negative (OSNDFP=705) Ur Propoxyphene Screen Negative (NVPDVZ=729) Acetaminophen (10-30) ug/mL Ur Barbiturates Screen Negative (FWVISL=562) Ur Tricyclics Screen Negative (NMZUQE=964) Ur Phencyclidine Scrn Negative (CUTOFF=25) Ur Amphetamine Screen Presumptive positive H (NGNFRX=295) U Methamphetamines Scrn Negative (QUXKEV=128) U Benzodiazepines Scrn Negative (YFBHTY=758) U Cocaine Metab Screen Negative (QWEUOV=983) U Marijuana (THC) Screen Negative (CUTOFF=50) Ethyl Alcohol (0.00) gm% Medications Generic Name Dose Route Start Last Admin Trade Name Freq PRN Reason Stop Dose Admin Lactated Ringer's 1,000 mls @ 150 mls/hr 11/21/18 02:15 Ringers, Lactated IV ASDIRECTED CHRISTINE Discontinued Medications Generic Name Dose Route Start Last Admin Trade Name Freq PRN Reason Stop Dose Admin Sodium Chloride 1,000 mls @ 150 mls/hr 11/21/18 01:45 11/21/18 01:47 Normal Saline IV 150 mls/hr ASDIRECTED CHRISTINE Administration Ondansetron HCl 4 mg 11/21/18 01:31 11/21/18 01:47 Zofran IVPUSH 11/21/18 01:32 4 mg ONETIME ONE Administration Medical Clearance: 11/21/18 01:32 By both history and physical examination, the patient appears to be intoxicated with alcohol. To be sure that her altered mental status is not due to something else, however, I have ordered an alcohol level, a urine drug screen, an acetaminophen level, and a salicylate level. I have also ordered an ECG to make sure that there is no QT prolongation in the event that she ingested some drugs , and some blood work to to make sure that she has not suffered any significant fluid or electrolyte shifts. A urine test was ordered, because if positive, it may alter our management. In the meantime, the patient will receive IV fluid and IV Zofran. 11/21/18 02:08 The patient's CBC is unremarkable. Her CMP is remarkable for a potassium depressed at 3.0, a bicarbonate depressed at 18 with an anion gap elevated at 17, and a blood glucose mildly elevated at 110. The remainder of the CMP is unremarkable. Her magnesium level is normal at 1.8. Her acetaminophen level is 0. Her salicylate level is not elevated. Her alcohol level is significantly elevated at 0.31. The urine drug screen is still pending. Due to the hypokalemia, I have switched the patient's IV fluid to LR at 150 mL/ hr. 11/21/18 02:22 The patient's urine drug screen is positive for amphetamine. Review of the [place] PMPi does not find any amphetamine-containing prescriptions (such as Adderall). The plan will be to keep the patient here in the ED overnight, then discharge her home once she is sober enough. 11/21/18 03:47 I went to check on the patient, finding her to be awake and quite alert. She stated that she does not have any nausea, presently. I was able to obtain her past medical, surgical and social history, which I have documented. She states that she was at the [facility] at the [facility], then she went to the [employer]. She does not recall how much she had to drink, and was surprised to learn that she passed out at the bar. She states that she hasn't had anything to drink in the past 3 years. I asked her about the amphetamine in her urine, and she states that she does not do drugs, and is alarmed to learn that it was in her urine. I explained that it is possible that it is a false positive, perhaps due to something that she ate. She stated that the only medication that she takes as a gummy multivitamin. I explained to the patient that it is our plan to keep her in the ED until the morning, then discharge her home, and that she should try to get some rest in the meantime. 11/21/18 04:41 The patient called her uncle. He has come to the ED, and the patient would like to go home. Departure - Departure Time of Disposition: 04:42 Disposition: Home, Self-Care 01 Condition: Good Clinical Impression: Alcohol intoxication, Hypokalemia, High anion gap metabolic acidosis - Discharge Information *PRESCRIPTION DRUG MONITORING PROGRAM REVIEWED*: Yes *COPY OF PRESCRIPTION DRUG MONITORING REPORT IN PATIENT ROBERT: No Referrals: Kim Marcial PA-C [[employer]] - Additional Instructions: You were brought to the emergency room after passing out and vomiting at a bar. Workup in the ER included blood work, a urine test, a urine drug screen, and an ECG. Your workup found your potassium level to be mildly low, and your chemistry panel found you to have a mild anion gap anabolic acidosis. You were given IV fluid to correct these abnormalities. Your alcohol level was found to be substantially elevated at 0.31. For reference , this is nearly 4 times the upper legal limit for driving. Your urine drug screen was positive for amphetamine, but, as discussed, it is possible that this was a false-positive. Stay adequately hydrated. Gatorade or Powerade are best. If any other problems, please do not hesitate to return to the ER. - My Orders Last 24 Hours: My Active Orders 11/21/18 01:30 EKG Documentation Completion [RC] STAT 11/21/18 02:15 Lactated Ringers [Ringers, Lactated] 1,000 ml IV ASDIRECTED - Assessment/Plan Last 24 Hours: My Active Orders 11/21/18 01:30 EKG Documentation Completion [RC] STAT 11/21/18 02:15 Lactated Ringers [Ringers, Lactated] 1,000 ml IV ASDIRECTED
[2018-11-21] MEDS ORDERED: Sodium Chloride 0.9% 1,000 ML IV SCH (01:45)
[2018-11-21 02:04] LABS: ACETAMINOPHEN 0 ug/mL (10-30)
[2018-11-21] MEDS ORDERED: Lactated Ringers 1,000 ML IV SCH (02:15)
[2018-11-21 05:08] VITALS: BP 112/74
== END 2018-11-21 05:06 | disposition home or self-care (01) ==
LOC: JD.ED 00:54
DX: F10.929 Alcohol use, unspecified with intoxication, unspecified (principal); E87.6 Hypokalemia; E87.2 Acidosis; Y90.8 Blood alcohol level of 240 mg/100 ml or more
CPT/HCPCS: 36415; 80053; 80306; 81025; 83735; 85007; 85027; 93005; 96361; 96374; 99284; G0480; J2405; J7040; J7120; 93010; 99283